=== PATIENT | male | born 1950 | race Caucasian/White ===

== ENCOUNTER 2019-03-24 07:45 | Day surgery (SDC) | payer OTHER ==
[~2019-03-24] VITALS: Ht 162.6 cm; Wt 88.5 kg
[~2019-03-24 07:45] MED LIST: ABILIFY5 MG; ACETAMINOPHEN325 M1 PO; AZITHROMYCIN250 MG PO; DIGOXIN125 MCG PO; FENOFIBRIC ACI135 MG PO; FLOMAX0.4 MG PO; GABAPENTIN100 MG PO; HYDROXYZINE HCL25 MG PO; IPRAT-ALBUT 0.5-3 ML; KEFLEX500 MG PO; KLOR-CON 1010 MEQ PO; LASIX80 MG PO; LOSARTAN POTASS25 MG PO; MAGNESIUM OXID420 MG PO; MELATONIN5 M2 PO; MEN'S ONE DAIL1 EACH PO; METFORMIN HCL1000 MG PO; METFORMIN HCL500 MG; METOPROLOL SUC100 MG PO; METOPROLOL TART25 MG; MIRTAZAPINE7.5 MG PO; OMEPRAZOLE20 MG; OMEPRAZOLE20 MG PO; PREDNISONE20 MG PO; PROSCAR5 MG PO; PYRIDOXINE HCL50 MG PO; SALSALATE500 MG PO; SIMVASTATIN80 MG PO; SPIRIVA RESPIMAT4 GM INH; SYMBICORT 16010.2 GM INH; WARFARIN SODIUM5 MG; WARFARIN SODIUM5 MG PO
--- NOTE | 2019-03-24 10:55 | NUR ---
03/24/19 Mayo5 [facility] 1047-PATIENT ARRIVED TO PACU ON 2L NC RR EVEN. LAYING LEFT LATERAL ABDOMEN ROUND AND SOFT. PATIENT REACTIVE TO VOICE OPENING EYES. AFIB. GLUCOSE CHECKED 152. IVF INFUSING. PATIENT DOZES BACK TO SLEEP. DENIES PAIN OR NAUSEA.
--- NOTE | 2019-03-25 06:35 | OR ---
[facility] [address] [place], [place] [address] Signed DATE OF OPERATION: 03/24/2019 SURGEON: Alen Skinner MD PREOPERATIVE DIAGNOSIS: Hyperplastic colonic polyps, 2008. POSTOPERATIVE DIAGNOSES: 1. 3-5 mm polyps at 75, 70, 18, and 5 cm. 2. Minimal sigmoid diverticulosis. PROCEDURE: Colonoscopy with hot biopsy. ESTIMATED BLOOD LOSS: None. INDICATIONS: Bryan is a 68-year-old gentleman asked to see me for followup colonoscopy. He had hyperplastic polyps taken out of his distal transverse colon back in 2008. He has been asked to see me for followup. He has no family history of colon cancer or polyps. He has no lower GI complaints. However, he has significant medical history. In fact, he is in chronic atrial fibrillation and has to wear oxygen. I met with Bryan in the office and I gave him a pamphlet on colonoscopy. We discussed the nature of the test along with its risks including, but not limited to gas bloating, crampy abdominal pain, bleeding, perforation requiring surgery, and missed diagnosis. We also discussed the need for IV conscious sedation. Given his advanced medical issues, his very full round face and heavy alvarez, we asked that an anesthesia provider help us with increased monitoring sedation with propofol. He had expressed understanding and wished to proceed. PROCEDURE NOTE: Bryan was taken into our endoscopy suite and placed in the left lateral decubitus position. He was maintained on IV sedation with propofol per our nurse mine expert. A digital rectal exam was performed and as expected, he has an indurated prostate gland. The adult colonoscope was introduced and advanced all around into the cecum under direct visualization of camera without difficulty. His prep was good. The scope was slowly withdrawn. We could easily see the appendiceal orifice and the ileocecal valve. We took pictures throughout for photodocumentation. The above-mentioned polyps were easily removed with the help of hot biopsy forceps. They measured anywhere from 3-5 mm. He Electronically Signed By: ALEN SKINNER MD 03/25/19 0635 PATIENT NAME: BRYAN BAUMAN ANCELMO OPERATIVE REPORT DATE OF : 46 REPORT #: [id number] PHYSICIAN: ALEN SKINNER MD PCP: AVANI VILLALPANDO MD REPORT IS CONFIDENTIAL AND NOT TO BE RELEASED WITHOUT AUTHORIZATION [facility] [address] [place], [place] [address] Signed did have some diverticula in the sigmoid colon. They were moderate in size, few in number, and scattered about. The scope had been retroflexed in the rectum and very minimal if any internal hemorrhoid columns. Just above the anal canal, there was a small polyp, which we removed with a hot biopsy forceps. After this, the gas was suctioned out and colonoscope removed. Bryan tolerated the procedure quite well. RECOMMENDATIONS: I will see Bryan back in my office in 7 to 14 days to review his results. He can resume his warfarin and his salsalate in 1 week. His other medications, he can resume today. Alen Skinner MD ALB/LISETL /[id number] cc: MD Avani Gao MD Copies: ALEN SKINNER MD, DELWYN MD ~ Electronically Signed By: ALEN SKINNER MD 03/25/19 0635 PATIENT NAME: BRYAN BAUMANN OPERATIVE REPORT DATE OF : 46 REPORT #: [id number] PHYSICIAN: ALEN SKINNER MD PCP: AVANI VILLALPANDO MD REPORT IS CONFIDENTIAL AND NOT TO BE RELEASED WITHOUT AUTHORIZATION
--- NOTE | 2019-03-26 15:05 | PATH ---
[facility] [address] [facility] [place] [place] [address] Signed SPECIMEN(S): A COLON POLYP AT 75 CM SPECIMEN(S): B COLON POLYP AT 70 CM SPECIMEN(S): C RANDOM COLON SPECIMEN(S): D DISTAL SIGMOID POLYP AT 18 CM SPECIMEN(S): E RECTAL POLYP AT 5 CM SPECIMEN SOURCE: A. COLON POLYP AT 75 CM B. COLON POLYP AT 70 CM C. RANDOM COLON D. DISTAL SIGMOID POLYP AT 18 CM E. RECTAL POLYP AT 5 CM CLINICAL HISTORY: Diarrhea, history of hyperplastic polyp. Postop: Colon/rectal polyps, diverticulosis. MICROSCOPIC DESCRIPTION: Histologic sections of all submitted blocks are examined by light microscopy. These findings, together with the gross examination, support the pathologic diagnosis. FINAL PATHOLOGIC DIAGNOSIS: A. Colon, polyp at 75 cm, polypectomy: - Fragments of tubular adenoma. - Negative for high-grade dysplasia or malignancy. B. Colon, polyp at 70 cm, polypectomy: - Tubular adenoma. - Negative for high-grade dysplasia or malignancy. C. Colon, random, biopsy: - Fragments of colonic mucosa with no histopathologic abnormality. - Negative for dysplasia or malignancy. D. 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 - Negative for dysplasia or malignancy. E. Rectum, polyp at 5 cm, polypectomy: - Fragments of cauterized tubular adenoma. - See Comment. COMMENT: The degree of cautery artifact on the rectal polyp (E) precludes complete histologic evaluation. PATIENT NAME: MARIA ALEJANDRA BAUMAN PATHOLOGY DATE OF : 46 REPORT #: [id number] PHYSICIAN: SHENA SCHMIDT PCP: AVANI VILLALPANDO MD REPORT IS CONFIDENTIAL AND NOT TO BE RELEASED WITHOUT AUTHORIZATION [facility] [address] [place], [place] [address] Signed NAL:[facility]:C GROSS DESCRIPTION: Five specimens are received in five containers, labeled "JF." A. The specimen, labeled "JF, colon polyp at 75 cm," is received in formalin and consists of two, 0.1-0.2 cm baxter tissue fragments. Specimen is entirely submitted in cassette (A1). B. The specimen, labeled "JF, colon polyp at 70 cm," is received in formalin and consists of two baxter tissue fragments, both measuring 0.3 cm. Specimen is entirely submitted in cassette (B1). C. The specimen, labeled "JF, random colon biopsy," is received in formalin and consists of two 0.2 and 0.3 cm, baxter tissue fragments. Specimen is entirely submitted in cassette (C1). D. The specimen, labeled "JF, distal sigmoid colon polyp at 18 cm," is received in formalin and consists of a single 0.3 cm baxter tissue fragment. Specimen is entirely submitted in cassette (D1). E. The specimen, labeled "JF, rectal polyp at 5 cm," is received in formalin and consists of two baxter-white tissue fragments, both measuring 0.2 cm. Specimen is entirely submitted in cassette (E1). AM (under the direct supervision of a pathologist) The Gross Description was prepared using a voice recognition system. The report was reviewed for accuracy; however, sound-alike word errors, addition and/or deletions may occur. If there is any question about this report, please contact Client Services. PERFORMING LABORATORY: The technical component was performed by [facility], [address] [place] [id number] (Stars Coordinator: Lulu Akbar MD; CLIA# [id number]). Professional interpretation was performed by [facility], [address] [place], [place] [address] (Stars Coordinator: Brendan Cardoso MD; CLIA# [id number]). Diagnostician: Gabby Jett MD Pathologist Electronically Signed 03/26/2019 Copies: PATIENT NAME: MARIA ALEJANDRA BAUMAN PATHOLOGY DATE OF : 46 REPORT #: [id number] PHYSICIAN: SHENA PATHOLOGY PCP: AVANI VILLALPANDO MD REPORT IS CONFIDENTIAL AND NOT TO BE RELEASED WITHOUT AUTHORIZATION [facility] [address] [place], [place] [address] Signed ~ PATIENT NAME: MARIA ALEJANDRA BAUMAN PATHOLOGY DATE OF : 46 REPORT #: [id number] PHYSICIAN: SHENA SCHMIDT PCP: AVANI VILLALPANDO MD REPORT IS CONFIDENTIAL AND NOT TO BE RELEASED WITHOUT AUTHORIZATION
== END 2019-03-24 11:30 | disposition home or self-care (01) ==
LOC: DS 07:45 → OPS 07:45 → DS 09:15 → OPS 11:30
PROVIDERS: Colon & Rectal Surgery
PROC: 0DBP8ZZ Excision of Rectum, Via Natural or Artificial Opening Endoscopic (ICD-10-PCS; 2019-03-24)
PROC: 0DBE8ZZ Excision of Large Intestine, Via Natural or Artificial Opening Endoscopic (ICD-10-PCS; 2019-03-24)
PROC: 0DBN8ZZ Excision of Sigmoid Colon, Via Natural or Artificial Opening Endoscopic (ICD-10-PCS; principal; 2019-03-24 09:15)
DX: Z12.11 Encounter for screening for malignant neoplasm of colon (principal); D12.5 Benign neoplasm of sigmoid colon; D12.6 Benign neoplasm of colon, unspecified; D12.8 Benign neoplasm of rectum; K57.30 Diverticulosis of large intestine without perforation or abscess without bleeding; I48.91 Unspecified atrial fibrillation; I10 Essential (primary) hypertension; J44.9 Chronic obstructive pulmonary disease, unspecified; K21.9 Gastro-esophageal reflux disease without esophagitis; E78.5 Hyperlipidemia, unspecified; E66.9 Obesity, unspecified; F32.9 Major depressive disorder, single episode, unspecified; F43.10 Post-traumatic stress disorder, unspecified; Z86.010 Personal history of colon polyps; Z98.890 Other specified postprocedural states; Z79.84 Long term (current) use of oral hypoglycemic drugs; Z79.899 Other long term (current) drug therapy; Z79.01 Long term (current) use of anticoagulants; Z68.33 Body mass index [BMI] 33.0-33.9, adult; Z87.891 Personal history of nicotine dependence
CPT/HCPCS: J2704; J7121